=== PATIENT | female | born 1980 | race Caucasian/White ===

== ENCOUNTER 2017-10-01 11:19 | Emergency (ER) | payer SELFPAY ==
[2017-10-01 12:00] LABS: Hemoglobin 11.9 g/dL (12.0-16.0); Mean Corpuscular HGB CONC 31.6 g/dL (32.0-36.0); Mean Corpuscular Hemoglobin 27.5 pg (27.0-31.0); Mean Platelet Volume 7.7 fL (7.4-10.4); Platelet Count 277 thou/uL (130-400); RBC Distribution Width 12.4 % (11.5-14.5); Red Blood Cell (RBC) Count 4.32 mill/uL (4.20-5.40); White Blood Cell (WBC) Count 8.5 thou/uL (4.8-10.8)
[2017-10-01 12:14] LABS: Lymphocytes 12 % (21-51); MDiff Complete? YES; Monocytes 5 % (0-10); Neutrophil 83 % (42-75); PLT Morphology Comment Appears Adequate; RBC Morphology Normal
[2017-10-01] MEDS ORDERED: Morphine 4 MG/ML Carpuject ONE (12:15)
[2017-10-01 12:41] LABS: ALT (SGPT) 18 U/L (8-55); AST (SGOT) 17 U/L (5-34); Albumin 4.6 g/dL (3.5-5.0); Alkaline Phosphatase 87 U/L (40-150); Anion Gap 15 mmol/L (10-20); BUN (Urea Nitrogen) 13 mg/dL (7.0-18.7); Bilirubin, Total 0.4 mg/dL (0.2-1.2); Calc. Creatinine Clearance 0 mL/min (70-130); Calcium 9.7 mg/dL (7.8-10.44); Carbon Dioxide 26 mmol/L (22-29); Chloride 102 mmol/L (98-107); Estimated GFR-MDRD 82; Globulin 3.2 g/dL (2.4-3.5); Glucose 117 mg/dL (70-105); Lipase 26 U/L (8-78); Protein, Total 7.8 g/dL (6.0-8.3); Sodium 139 mmol/L (136-145)
[2017-10-01] MEDS ORDERED: Ketorolac Tromethamine 30 MG/ML VIAL ONE (12:46)
--- NOTE | 2017-10-01 12:48 | CT ---
CT ABDOMEN AND PELVIS NONCONTRAST: History: Right flank pain. Comparison: 05-15-17 FINDINGS: The right renal collecting system and ureter remain dilated to the level of the 0.6 cm calculus withi n the distal right ureter. No other urinary tract stones are apparent. The left renal collecting syst em, ureter and urinary bladder are decompressed. Lack of contrast limits evaluation for other abnormalities. No evidence of bowel obstruction. Phlebol iths are apparent within the pelvis. IMPRESSION: Partial obstruction at a 6 mm distal right ureteral calculus. The appearance is unchanged from the exam. POS: [facility]
[2017-10-01 12:52] LABS: Clarity Cloudy (Clear); Glucose, Urine (Dipstick) Negative (Negative)
[2017-10-01 12:53] LABS: Bilirubin Unable to Interpret (Negative); Blood, Urine Unable to Interpret (Negative); Leukocyte Unable to Interpret (Negative); Nitrite Unable to Interpret (Negative); Specific Gravity, Urine 1.022 (1.002-1.036)
[2017-10-01 12:54] LABS: Protein, Urine (Dipstick) 300 mg/dL (Neg-Trace)
[2017-10-01 12:55] LABS: Pregnancy Test - Urine (BHCG) Negative (Negative); Pregu Control Background? CLEAR/WHITE (CLR/WHITE); Pregu Control Bar Appear? YES (CONTROL BAR); Specific Gravity 1.022 (1.002-1.036)
[2017-10-01 12:59] LABS: Bacteria/HPF Rare-Few HPF (None Seen); RBC/HPF GREATER THAN 50-TNTC HPF (0-3)
== END 2017-10-01 13:14 | disposition home or self-care (01) ==
LOC: SCSER 11:19
DX: N20.1 Calculus of ureter (principal); E03.9 Hypothyroidism, unspecified; Z87.442 Personal history of urinary calculi; Z79.84 Long term (current) use of oral hypoglycemic drugs; Z79.899 Other long term (current) drug therapy
CPT/HCPCS: 74176; 80053; 81003; 81015; 81025; 83690; 85025; 87086; 96361; 96374; 96375; J1885; J2270

== ENCOUNTER 2017-10-21 06:02 | Day surgery (SDC) | payer OTHER ==
[2017-10-18 11:11] VITALS: BMI 29.9
[2017-10-21] MEDS ORDERED: Fentanyl 100 MCG/2 ML VIAL ONE ×2 (06:33→08:22)
[2017-10-21] MEDS ORDERED: Ondansetron HCl/PF 4 MG/2 ML Vial ONE ×2 (07:13→14:11)
[2017-10-21] MEDS ORDERED: Famotidine/PF 20 mg/2ml Vial ONE (07:13)
[2017-10-21] MEDS ORDERED: Iothalamate Meglumine 60% 50 ML VIAL FS ONE (07:18)
[2017-10-21] MEDS ORDERED: Midazolam HCl 2 mg/2 ml Vial ONE (07:29)
[2017-10-21] MEDS ORDERED: CEFAZOLIN/Water 2 GM/20 ML SYRINGE ONE (07:33)
--- NOTE | 2017-10-21 08:44 | OP ---
DATE OF PROCEDURE: 10/21/2017 PREOPERATIVE DIAGNOSIS: Right ureteral stone. POSTOPERATIVE DIAGNOSIS: Passed stone. PROCEDURE: Cystoscopy, right ureteroscopy. SURGEON: Dr. Alonso. ANESTHESIA: General. INDICATIONS: Mr. Bowser is a 36-year-old female, who has a history of right ureteral stone. It had b een present for several months. She opted to proceed with surgical therapy. Her most recent imaging was approximately 2 weeks ago confirming the stone still in an unchanged location. She did not noti ce stone passage prior to the procedure. DETAILS OF THE PROCEDURE: The patient was given general anesthesia and IV antibiotics. She was ster ilely prepped and draped in the lithotomy position. The cystoscope was passed into the bladder. The bladder was examined in its entirety. There were no mucosal lesions. The right ureteral orifice wa s intubated with a floppy tip guidewire, which was passed cephalad under a fluoroscopic control. Rig id ureteroscopy was then performed. Although she had a somewhat tight ureteral orifice, the ureteros cope could be passed into the right kidney. There were no stones seen in any portion of the ureter. The cystoscope was removed as well as the wire. The bladder was drained. The patient tolerated the procedure well. She was transported from the operating room to recovery room in stable condition. COMPLICATIONS: None. ESTIMATED BLOOD LOSS: Minimal.
[2017-10-21] MEDS ORDERED: Lidocaine 1% PF 5 ML VIAL ONE (14:11)
[2017-10-21] MEDS ORDERED: PROPOFOL 200 MG/20 ML VIAL ONE (14:11)
[2017-10-21] MEDS ORDERED: Dexamethasone 20 MG/5 ML VIAL ONE (14:11)
== END 2017-10-21 10:05 | disposition home or self-care (01) ==
LOC: SDC 06:02
PROVIDERS: ATTEND Urology
PROC: 0TJ98ZZ Inspection of Ureter, Via Natural or Artificial Opening Endoscopic (ICD-10-PCS; principal; 2017-10-21)
DX: N20.1 Calculus of ureter (principal); E11.22 Type 2 diabetes mellitus with diabetic chronic kidney disease; N18.9 Chronic kidney disease, unspecified; Z79.84 Long term (current) use of oral hypoglycemic drugs; Z79.899 Other long term (current) drug therapy; Z88.5 Allergy status to narcotic agent; Z88.8 Allergy status to other drugs, medicaments and biological substances; Z98.891 History of uterine scar from previous surgery; Z98.818 Other dental procedure status
CPT/HCPCS: 76000; 96374; C1758; J1100; J2001; J2250; J2405; J2704; J3010; Q9961; S0028